=== PATIENT | male | born 1980 | race Caucasian/White ===

== ENCOUNTER → 2024-12-08 08:36 | Outpatient (REF) | payer OTHER, SELFPAY | LOC: WOUND 08:36 | PROVIDERS: ATTENDING PHYSICIAN Surgery; FAMILY PHYSICIAN Nurse Practitioner Family | DX: T21.21XA Burn of second degree of chest wall, initial encounter (principal); X11.8XXA Contact with other hot tap-water, initial encounter | CPT/HCPCS: 99203 ==